=== PATIENT | male | born 1955 | race American Indian/Alaskan Native ===

== ENCOUNTER 2016-07-31 12:28 | Outpatient (CLI) | payer OTHER ==
--- NOTE | 2016-07-31 12:54 | Cat Scan Report ---
CT HEAD WITHOUT CONTRAST INDICATION: Frequent headaches. COMPARISON: None similar at this institution. FINDINGS: Noncontrast head CT demonstrates symmetric, age-appropriate ventricles and sulci without acute or recent infarct, hemorrhage, mass effect or midline shift. Slight periventricular hypodensities. Minimal, benign basal ganglia calcifications, right more than left. No abnormal extra-axial fluid collections. Posterior fossa structures and basilar cisterns appear within normal limits. Symmetric eye globes. Clear paranasal sinuses and mastoid air cells. Intact calvarium. Normal overlying scalp soft tissues. Atherosclerotic internal carotid artery calcifications. Few radiopaque dental material and missing teeth incidentally noted. CONCLUSION: No acute intracranial CT abnormality, as described. Thank you for the opportunity to participate in this patient's care.
== END 2016-07-31 12:29 | disposition home or self-care (01) ==
LOC: CT 12:28
DX: G23.8 Other specified degenerative diseases of basal ganglia (principal); I25.10 Atherosclerotic heart disease of native coronary artery without angina pectoris; I10 Essential (primary) hypertension
CPT/HCPCS: 70450